=== PATIENT | male | born 1970 | race Two or more races ===

== ENCOUNTER 2024-11-17 10:00 | Day surgery (SDC) | payer MEDICAID, SELFPAY ==
[2024-11-16 09:46] VITALS: BMI 36.1
--- NOTE | 2024-11-16 09:54 | EKG_ITS ---
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
[2024-11-16 10:12] LABS: Collection Type, Urine Clean Catch
[2024-11-16 10:45] LABS: Basophils # (Auto) 0.0 Thou/mm3 (0.0-0.2); Basophils % (Auto) 0 % (0-2.5); Eosinophils # (Auto) 0.2 Thou/mm3 (0.0-0.5); Eosinophils % (Auto) 2 % (0-10); Hematocrit 46.8 % (41.0-53.0); Hemoglobin 15.6 g/dL (13.5-16.0); Immature Granulocytes Auto 0.04 Thou/mm3 (0.00-0.00); Lymphocytes # (Auto) 2.8 Thou/mm3 (1.0-4.8); Lymphocytes % (Auto) 29 % (10-50); Mean Corpuscular HGB Conc 33.3 g/dl (31.0-37.0); Mean Corpuscular Hemoglobin 27.2 pg (25.0-35.0); Mean Corpuscular Volume 82 fL (80-100); Monocytes # (Auto) 0.7 Thou/mm3 (0.0-0.8); Monocytes % (Auto) 7 % (0-12); Neutrophils # (Auto) 6.1 Thou/mm3 (1.8-7.7); Neutrophils % (Auto) 62 % (37-80); Nucleated Red Blood Cell # 0.00 Thou/mm3 (0.00-0.00); Nucleated Red Blood Cell % 0 /100 WBC (0); Platelet Count 255 Thou/mm3 (140-440); RDW Standard Deviation 40.8 fL (35.1-43.9); Red Blood Count 5.73 Miln/mm3 (4.50-5.90); White Blood Count 9.9 Thou/mm3 (3.8-10.6)
[2024-11-16 10:50] LABS: Bacteria,Urine 4+; Bilirubin,Urine Negative (Negative); Blood,Urine 3+ (Negative); Clarity,Urine Turbid (Clear/Hazy); Color,Urine Yellow (Lt Yel-Yel); Glucose, Urine Negative (Negative); Ketones,Urine Negative (Negative); Leukocyte Esterase,Urine Positive (Negative); Nitrite,Urine Negative (Negative); PH,Urine 6.5 (5.0-7.0); Protein,Urine 2+ (Neg - Trace); RBC,Urine 1633 /hpf (0-3); Specific Gravity,Urine 1.020 (1.001-1.035); Squamous Epithelial Cell,Urine 1 /hpf (0-5); Urobilinogen,Urine Negative mg/dL (0.0-1.0); WBC,Urine 87 /hpf (0-5)
[2024-11-16 10:52] LABS: Anion Gap 9 (7-16); BUN/Creatinine Ratio 11 Ratio (12-20); Blood Urea Nitrogen 9 mg/dL (9-23); Calcium 9.7 mg/dL (8.3-10.6); Carbon Dioxide 27.9 mMol/L (20.0-31.0); Chloride 105 mMol/L (98-107); Creatinine (Component) 0.8 mg/dL (0.6-1.3); Estimated Creatinine Clearance 125.6 mL/min (>60); Glucose 124 mg/dL (74-106); Osmolality,Calculated 282 (275-295); Potassium 4.2 mMol/L (3.4-5.1); Sodium 142 mMol/L (136-145); eGFR > 60 See Note
--- NOTE | 2024-11-16 14:09 | SUR.PREOP ---
Pt's ride Nataliia daughter notified to bring pt at 1000 tomorrow.
[2024-11-17] VITALS (8 sets, daily range): BP systolic 130–169; BP diastolic 77–94; PULSE 92–105; RESP 12–19; TEMP 36.2–36.6; O2SAT 92–98; BMI 35.9
--- NOTE | 2024-11-17 06:00 | XR_ITS ---
Examination: Abdomen AP single view Technique: AP portable supine abdomen, single view Exam date and time: November 17, 2024, 10:14 AM INDICATIONS: Flank pain history kidney stone 6 months FINDINGS: Right ureteral stent satisfactory position 16mm right renal calculus IMPRESSION: Right ureteral stent satisfactory position
--- NOTE | 2024-11-17 09:17 | ESHP_ITS ---
RE: THIAGO CERVANTES : 1970 DATE OF ADMISSION: 11/15/2024 HISTORY OF PRESENT ILLNESS: The patient has a right renal stone. Now, it is in the right ureter. He also has a right renal stone 19 mm and 20 mm. The patient is scheduled to have extracorporeal shock wave lithotripsy for the right renal stones. A 54-year-old gentleman Irish speaking with right renal pain. He had a stent placed by Dr. Decker in [place] and the patient had right renal stones. PAST SURGICAL HISTORY: Previous surgery included some surgery for stones by Dr. Reina. He had appendectomy before. He has 4 children. PAST MEDICAL HISTORY: He has a history of diabetes mellitus. No history of hypertension. ALLERGIES: NONE KNOWN. HOME MEDICATIONS: He is not on any medications. PHYSICAL EXAMINATION: HEENT: Normal. NECK: Supple. LUNGS: Clear. CARDIOVASCULAR: Heart sounds are normal. ABDOMEN: Soft without any organomegaly. No guarding. No rigidity. EXTREMITIES: Normal. LABORATORY DATA: CT scan of the abdomen and pelvis revealed 20 mm stone in the right renal pelvis and 2 mm right renal stone. The patient has a right ureteral stent in place. PLAN: Extracorporeal shock wave lithotripsy for the right renal stone. Planned procedure, risks, and complications have been discussed with the patient. The patient understood and agreed to proceed. DT: 14:12:17 TT: 15:02:00 Ref: [id number] - TID: [id number]
--- NOTE | 2024-11-17 12:45 | SUR.PHASEI ---
1245: Pt. arrived with nasal trumpet in left nare, pt. wakes to name then drifts back to sleep, vitals stable, breathing unlabored, no signs of distress, no dressing in place, no active bleed noted, report received from Hermann NIEVES and Nick ZAYAS.
[2024-11-17] MEDS: ONDANSETRON INJ 2 MG/ML INJ 2 ML 4 MG IV (13:27)
--- NOTE | 2024-11-17 13:47 | SUR.PHASEII ---
1347: Pt. AAOx4, vitals stable, breathing unlabored, no complaint of pain or nausea, no dressing in place, pt. able to void hematuria, pt. tolerated sips of water well, gave discharge instructions to the pt. and his ride, both verbalized understanding and had no further questions. Pt. left with all personal belongings.
--- NOTE | 2024-11-17 14:13 | ESOP_ITS ---
RE: NIKAPREMATHIAGO ABDULLAHI : 1970 DATE OF OPERATION: 11/17/2024 PREOPERATIVE DIAGNOSIS: Large right renal stone. POSTOPERATIVE DIAGNOSIS: Large right renal stone. PROCEDURE PERFORMED: Right ESWL for right renal stone. ANESTHESIA: General by Nick Reynolds CRNA. INDICATION: The patient is a 54-year-old male with a right renal stone. He has about 1.5 cm stone in the right renal pelvis. He had a right ureteral stent placed in [place] by Dr. Decker. He is now scheduled to have ESWL for the right renal stone. Planned procedure, risks and complications have been discussed with the patient. The patient has understood them and agreed to proceed. DESCRIPTION OF PROCEDURE: After the patient was brought to the operating table under adequate general anesthesia by Mr. Nick Reynolds CRNA, he was placed on Dornier Delta III lithotripsy machine, 2500 shocks were given to the stone. Power level 7 to 8. The patient was then taken to the recovery room in a satisfactory condition having tolerated the entire procedure well. DT: 12:22:29 TT: 14:12:00 Ref: [id number] - TID: [id number]
== END 2024-11-17 13:47 | disposition home or self-care (01) ==
PROVIDERS: Referring Provider Surgery; Visit Provider Surgery
PROC: (CPT 50590; principal; 2024-11-17 11:45)
DX: N20.0 Calculus of kidney (principal); Z01.810 Encounter for preprocedural cardiovascular examination; Z90.49 Acquired absence of other specified parts of digestive tract
CPT/HCPCS: 50590; 36415; 74018; 80048; 81001; 85025; 87086; 93005; A4217; A4649; J0131; J0694; J1171; J1885; J2250; J2405; J2704; J3010; J3490

== ENCOUNTER 2025-01-17 11:58 | Emergency (ER) | payer MEDICAID, SELFPAY ==
[2025-01-17 11:59] VITALS: BMI 35.2
--- NOTE | 2025-01-17 12:55 | XR_ITS ---
Examination: CT abdomen and pelvis without contrast. Coronal 3-D reconstructions. Sagittal 2-D reconstructions. Date and time of exam: January 17, 2025, 1410 hours INDICATIONS: Patient fell last week with injury to the abdomen, abdominal pain CTDI: vol (mGy): 14.1 DLP: (mGycm): 935 Technique: Axial images of the abdomen have been obtained, 3 mm slice thickness Intravenous contrast material has not been administered. Low dose protocols were performed. One or more of the following dose reduction techniques were used; automated exposure control, adjustment of the mA and/or KV according to patient size, use of iterative reconstruction technique. Findings: No focal liver or splenic lesions Contracted gallbladder No pancreatic or adrenal mass Right ureteral stent, multiple right renal calculi, mild right hydronephrosis, 3 mm right ureteral calculus Aorta intact, no free blood in the abdomen Urinary bladder intact Moderate osteopenia Hips bones of the pelvis intact IMPRESSION: No abdominal parenchymal laceration No free blood in the abdomen or pelvis Right multiple renal calculi, 3 mm right ureteral calculus Right ureteral stent satisfactory position Mild right hydronephrosis
--- NOTE | 2025-01-17 12:56 | PD.EDRME ---
Rapid Medical Screening Exam RME Arrival date/time: 01/17/25 11:58 54-year-old male presents emergency department today from his right flank pain and hematuria patient reports history of kidney stones and kidney stents patient also ports recent fall Chief Complaint: Back Pain/Injury Vital signs reviewed by provider: Yes Exam: On exam patient well-appearing does not appear look toxic patient does have pain the right flank Clinical Impression: Lab work and imaging ordered
[2025-01-17 12:58] VITALS: BP 159/98; PULSE 92; RESP 18; TEMP 36.5; O2SAT 96
[2025-01-17] MEDS: HYDROcodone/APAP 5/325 TABLET 1 TAB PO (13:20)
[2025-01-17 13:21] LABS: Collection Type, Urine Clean Catch; Squamous Epithelial Cell,Urine 0 /hpf (0-5)
[2025-01-17] MEDS: KETOROLAC INJ 30 MG/ML VIAL IM (13:22)
[2025-01-17 13:42] LABS: Basophils # (Auto) 0.0 Thou/mm3 (0.0-0.2); Basophils % (Auto) 0 % (0-2.5); Eosinophils # (Auto) 0.2 Thou/mm3 (0.0-0.5); Eosinophils % (Auto) 2 % (0-10); Hematocrit 45.1 % (41.0-53.0); Hemoglobin 15.0 g/dL (13.5-16.0); Immature Granulocytes Auto 0.05 Thou/mm3 (0.00-0.00); Lymphocytes # (Auto) 3.5 Thou/mm3 (1.0-4.8); Lymphocytes % (Auto) 33 % (10-50); Mean Corpuscular HGB Conc 33.3 g/dl (31.0-37.0); Mean Corpuscular Hemoglobin 26.7 pg (25.0-35.0); Mean Corpuscular Volume 80 fL (80-100); Monocytes # (Auto) 0.9 Thou/mm3 (0.0-0.8); Monocytes % (Auto) 8 % (0-12); Neutrophils # (Auto) 5.9 Thou/mm3 (1.8-7.7); Neutrophils % (Auto) 55 % (37-80); Nucleated Red Blood Cell # 0.00 Thou/mm3 (0.00-0.00); Nucleated Red Blood Cell % 0 /100 WBC (0); Platelet Count 251 Thou/mm3 (140-440); RDW Standard Deviation 41.2 fL (35.1-43.9); Red Blood Count 5.62 Miln/mm3 (4.50-5.90); White Blood Count 10.6 Thou/mm3 (3.8-10.6)
[2025-01-17 13:43] LABS: Alanine Aminotransferase 27 U/L (10-49); Albumin, Serum 4.5 gm/dL (3.5-5.0); Albumin/Globulin Ratio 1.9 (1.2-2.2); Alkaline Phosphatase 112 U/L (46-116); Anion Gap 9 (7-16); Aspartate Amino Transferase 22 U/L (0-34); BUN/Creatinine Ratio 10 Ratio (12-20); Bilirubin,Total 0.3 mg/dL (0.3-1.2); Blood Urea Nitrogen 8 mg/dL (9-23); Calcium 9.7 mg/dL (8.3-10.6); Calcium (Corrected) 9.7 mg/dL (8.5-10.1); Carbon Dioxide 25.9 mMol/L (20.0-31.0); Chloride 106 mMol/L (98-107); Creatinine (Component) 0.8 mg/dL (0.6-1.3); Estimated Creatinine Clearance 120.2 mL/min (>60); Globulin 2.4 gm/dL (2.3-3.5); Glucose 116 mg/dL (74-106); Lipase 29 U/L (12-53); Osmolality,Calculated 280 (275-295); Potassium 3.7 mMol/L (3.4-5.1); Sodium 141 mMol/L (136-145); Total Protein 6.9 gm/dL (5.7-8.2); eGFR > 60 See Note
[2025-01-17 14:02] LABS: Bacteria,Urine 1+; Bilirubin,Urine Negative (Negative); Blood,Urine 3+ (Negative); Color,Urine Dark-Brown (Lt Yel-Yel); Glucose, Urine Negative (Negative); Hyaline Casts,Urine 1 /hpf (0-1); Ketones,Urine Negative (Negative); Leukocyte Esterase,Urine Positive (Negative); Nitrite,Urine Negative (Negative); PH,Urine 6.0 (5.0-7.0); Protein,Urine 2+ (Neg - Trace); RBC,Urine 6695 /hpf (0-3); Specific Gravity,Urine 1.021 (1.001-1.035); Urobilinogen,Urine Negative mg/dL (0.0-1.0); WBC,Urine 58 /hpf (0-5)
[2025-01-17 14:12] LABS: Clarity,Urine Cloudy (Clear/Hazy); Culture Indicated,Urine Yes
--- NOTE | 2025-01-17 14:26 | EDNOTE_ITS ---
ED Back Injury Pain RME/HPI General Chief Complaint: Back Pain/Injury Stated Complaint: R FLANK PAIN S/P FALL ON SAT; PMH KIDNEY STENT Time Seen by Provider: 01/17/25 14:06 Arrival date/time: 01/17/25 11:58 RME / HPI RME / HPI Narrative: 01/17/25 11:58 54-year-old male presents emergency department today from his right flank pain and hematuria patient reports history of kidney stones and kidney stents patient also ports recent fall DR. JENSEN MAIN ED EVALUATION, 1427h: 54 year old male with history of right kidney stone with ureteral stent in place (08/09/2024) presents to the ED for evaluation of right flank pain today. Pain described as colicky aching in sensation, rating as moderate. Accompanied by hematuria and dysuria. However, states he has had mild dysuria since stent placement months ago. Patient mentioned he had a ground level fall 4 days ago and concerned that may have cause his symptoms. No other injuries or complaints reported. Patient mentioned he consulted with his urologist Dr. Garay today who advised he come to the ED for further evaluation. Exam: On exam patient well-appearing does not appear look toxic patient does have pain the right flank Impression: Lab work and imaging ordered Related Data Previous Rx's ?Medication ?Instructions ?Recorded ciprofloxacin HCl 500 mg tablet 500 mg PO BID #30 tabs 11/17/24 (Cipro) hydrocodone 5 mg-acetaminophen 325 1 tab PO Q6H PRN pa in #30 tabs 11/17/24 mg tablet ketorolac 10 mg tablet 10 mg PO Q8H PRN pain 5 days #20 01/17/25 tabs tamsulosin 0.4 mg capsule (Flomax) 0.4 mg PO QDAY #10 caps 01/17/25 Allergies Allergy/AdvReac Type Severity Reaction Status Date / Time No Known Allergies Allergy Verified 01/17/25 12:02 Review of Systems Review of Systems Systems Reviewed: All systems reviewed, normal except as documented Past Medical History Past Medical History GASTROINTESTINAL: Positive Gastrointestinal Disorders and Obesity GENITOURINARY: Positive Genitourinary Disorders and Kidney Stones Surgical History SURGICAL: Positive Abdominal Surgery Social History SMOKING STATUS: Never smoker ED Exam Narrative Physical exam: Constitutional: Awake, alert, nontoxic, no acute distress, obese HEENT: Normocephalic, atraumatic, extraocular movements intact. Neck: Supple CV: Regular rate and rhythm, no murmurs/rubs/gallops Lungs: Clear to auscultation BL, no respiratory distress. Abd: Soft, tenderness to the right flank and right lateral abdomen, no rebound, no guarding, ND, no HSM noted to palpation Extremities: No deformities, no edema noted Neuro: AAOx3, CN 2-12 GIBL Skin: Warm, dry, intact Course Quality Measures none Orders Category Date Time Status CT abdomen pelvis wo con Stat Exams 01/17/25 12:55 Completed CBC Stat Lab 01/17/25 13:05 Completed Comprehensive Metabolic Panel Stat Lab 01/17/25 13:05 Completed Lipase Stat Lab 01/17/25 13:05 Completed UA, C/S IF [Urinalysis, C/S if Indicated] Stat Lab 01/17/25 13:13 Completed Urine Culture Stat Lab 01/17/25 13:13 Received HYDROcodone*/APAP 5/325 [[place] 5/325] Med 01/17/25 12:55 Discontinued 1 tab PO X1 ONE Ketorolac Inj [Toradol Inj] Med 01/17/25 12:55 Discontinued 30 mg IM X1 ONE Vital Signs Vital signs: Vital Signs Temperature 97.7 F 01/17/25 12:58 Pulse Rate 92 01/17/25 12:58 Respiratory Rate 18 01/17/25 12:58 Blood Pressure 159/98 H 01/17/25 12:58 Pulse Oximetry (%) 96 01/17/25 12:58 Oxygen Delivery Method Room Air 01/17/25 12:58 Pulse ox is 96% on room air which is adequate. Back Pain / Injury MDM Narrative MDM Narrative:: Mel Ramirez am scribing for and in the presence of Dr. Jensen. Patient data External records reviewed:: [facility] previous records Clinical information provided by:: patient Social determinants that could affect healthcare access:: none Patient has the following chronic illnesses:: right kidney stone with ureteral stent in place (08/09/2024) How is presenting disease/condition affected by chronic disease/condition?: exacerbated by Evaluation data The following diagnostics were reviewed and interpreted by me:: lab results and radiology exam(s) Lab and/or radiology exams considered but not ordered:: None Interpretation Summary: Ordering Physician: Triny WINN)Hussein NP Date of Service: 01/17/25 Procedure(s): CT abdomen pelvis wo con Accession Number(s): [id number] cc: Triny (MONA),Hussein DUNN; Servando Marin MD~ Examination: CT abdomen and pelvis without contrast. Coronal 3-D reconstructions. Sagittal 2-D reconstructions. Date and time of exam: January 17, 2025, 1410 hours INDICATIONS: Patient fell last week with injury to the abdomen, abdominal pain CTDI: vol (mGy): 14.1 DLP: (mGycm): 935 Technique: Axial images of the abdomen have been obtained, 3 mm slice thickness Intravenous contrast material has not been administered. Low dose protocols were performed. One or more of the following dose reduction techniques were used; automated exposure control, adjustment of the mA and/or KV according to patient size, use of iterative reconstruction technique. Findings: No focal liver or splenic lesions Contracted gallbladder No pancreatic or adrenal mass Right ureteral stent, multiple right renal calculi, mild right hydronephrosis, 3 mm right ureteral calculus Aorta intact, no free blood in the abdomen Urinary bladder intact Moderate osteopenia Hips bones of the pelvis intact IMPRESSION: No abdominal parenchymal laceration No free blood in the abdomen or pelvis Right multiple renal calculi, 3 mm right ureteral calculus Right ureteral stent satisfactory position Mild right hydronephrosis Dictated By: Servando Marin MD Signed By: <Electronically signed by Servando Marin MD in [place]> 01/17/25 1440 Medications / Prescriptions Medications or Prescriptions considered but not ordered:: None Medication administrations:: Medication Administration History Discontinued Medications Hydrocodone Bitart/Acetaminophen (Hydrocodone/Apap 5/325 Tablet) 1 tab PO X1 ONE Stop: 01/17/25 12:56 Last Admin: 01/17/25 13:20 Dose: 1 tab Documented By: Ketorolac Tromethamine (Ketorolac Inj 30 Mg/Ml Vial) 30 mg IM X1 ONE Stop: 01/17/25 12:56 Last Admin: 01/17/25 13:22 Dose: 30 mg Documented By: See above Consultations Consultation(s) initiated? (list below): No Diagnosis Most likely diagnosis given after review of the tests above:: Ureterolithiasis Ureteral stent present Admission Indicated Admission indicated?: not indicated Explain why admission is indicated or not indicated:: With no condition needing emergent intervention, there was no indication for admission. Admission Request Was there a request for admission?: No Disposition Plan Disposition Plan: Discharge Discharge Attestation Discharge Attestation: The patient and all family members were given an opportunity to ask questions and understood the discharge instructions. Discharge instructions specifically effects, indications for sooner follow up or return to the emergency department, and the expected course of current diagnosis. Patient condition: Stable Discharge Plan Plan Patient Disposition: HOME (Self Care) Patient condition on transfer: Stable Prescriptions/Referrals Prescriptions/Med Rec: New ketorolac 10 mg tablet 10 mg PO Q8H PRN (Reason: pain) 5 Days Qty: 20 0RF Rx Instructions: maximum total duration of 5 days. Avoid concurrent use of ibuprofen. tamsulosin [Flomax] 0.4 mg capsule 0.4 mg PO QDAY Qty: 10 0RF Discontinued ibuprofen 800 mg tablet 800 mg PO Q8H PRN (Reason: pain) No Action hydrocodone-acetaminophen 5-325 mg tablet 1 tab PO Q6H MDD 4 PRN (Reason: pain) Qty: 30 0RF ciprofloxacin HCl [Cipro] 500 mg tablet 500 mg PO BID Qty: 30 0RF Problem List Clinical Impression: Ureterolithiasis, Ureteral stent present Patient/Caregiver Discharge Instructions Education Materials: Treating Kidney Stones ..., ED Kidney Stone w/ Colic Additional Instructions: Algunos principios generales de rama que pueden ayudarte son los principios de ADELANTE: Agua: (beber suficiente agua fresca para mantenerse hidratado, priorizando el agua en lugar de refrescos, caf?, t?, jugos, etc.). Pelion (descansar adecuadamente por la noche, acostarse unas horas antes de la medianoche y evitar las pantallas, la televisi?n y la m?idalia clemente steven antes de acostarse, as? sherin las comidas pesadas steven antes de acostarse). Ejercicio: (ejercicio/caminatas diarias seg?n la tolerancia). Deborah solar: (exponer la piel al jorge gabrielle 15-20 minutos aproximadamente, temprano por la ma?paolo y al atardecer, para obtener los beneficios de la vitamina D). Aire (ejercicios de respiraci?n profunda temprano por la ma?paolo al aire raheem). Nutricion: (consumir essence dieta a base de plantas, evitar las ellen en general y los alimentos altamente procesados). Templanza (evitar el alcohol, las drogas il?citas, las bebidas con cafe?na, fumar, etc.). Mellissa en [place] (dedicar tiempo diariamente al estudio b?blico y la oraci?n: la contemplaci?n tiene beneficios para la rama). Recursos adicionales que pueden ser ?mary: [email or web address], consulte la secci?n de recursos y seminarios. Print Language: Wolof Stand Alone Forms: Jie Award Info., Patient Portal Info Letter
== END 2025-01-17 15:12 | disposition home or self-care (01) ==
LOC: SERX 15:20
PROVIDERS: Nurse Practitioner Primary Care; Emergency Provider Family Medicine
DX: N13.2 Hydronephrosis with renal and ureteral calculous obstruction (principal); Z96.0 Presence of urogenital implants
CPT/HCPCS: 36415; 74176; 80053; 81001; 83690; 85025; 87086; 96372; 99283; J1885; A9270

== ENCOUNTER 2025-01-19 10:50 | Day surgery (SDC) | payer MEDICAID, SELFPAY ==
[2025-01-18 12:05] VITALS: BMI 36.9
--- NOTE | 2025-01-18 12:14 | EKG_ITS ---
[facility] Test Date: 2025-01-18 Pat Name: THIAGO CERVANTES Department: Room: - Gender: Male Digital Coordinator: ТАТЬЯНА : 1970 Requested By: Grey Garay Order Number: [id number] Reading MD: Grey Garay Measurements Intervals [place] Rate: 86 P: 19 GA: 156 QRS: -49 QRSD: 109 T: 30 QT: 362 QTc: 435 Interpretive Statements SINUS RHYTHM PATTERN CONSISTENT WITH PULMONARY DISEASE INCOMPLETE RIGHT BUNDLE BRANCH BLOCK [90+ ms QRS DURATION, TERMINAL R IN V1/V2, 40+ ms S IN I/aVL/V4/V5/V6] LEFT ANTERIOR FASCICULAR BLOCK [QRS AXIS <= -45, QR IN I, RS IN II] No previous ECG available for comparison /store/S0/[id number]/ecg/[id number].pdf
[2025-01-18 12:54] LABS: Collection Type, Urine Clean Catch; Squamous Epithelial Cell,Urine 0 /hpf (0-5)
--- NOTE | 2025-01-18 13:13 | ESHP_ITS ---
RE: THIAGO CERVANTES : 1970 DATE OF ADMISSION: 01/18/2025 HISTORY OF PRESENT ILLNESS: Patient has a right renal stone and a right ureteral stent, is now scheduled for repeat ESWL for the right renal stone. Patient had a 1.5 cm stone in the right lower pole of the kidney for which he had ESWL done in 11/2024. Patient has a right ureteral stent placed in [place] by Dr. Decker. He is now scheduled to have a repeat right ESWL because there are still stones left in the right kidney and he may need a cystoscopy and exchange of the right ureteral stent because the stent seems to be a little longer on previous x-rays, and patient has been complaining of so much urgency and frequency of urination. PAST SURGICAL HISTORY: Patient had laser lithotripsy by Dr. Reina many years ago. He also had appendectomy. He has four children. PAST MEDICAL HISTORY: He has history of diabetes mellitus. No history of hypertension. HOME MEDICATIONS: Patient does not take any medications. ALLERGIES: NONE KNOWN. PHYSICAL EXAMINATION: HEENT: Normal. Neck: Supple. Lungs: Clear. CARDIAC: Heart sounds are normal. ABDOMEN: Soft without any organomegaly. No guarding. No rigidity. Extremities: Normal. GENITOURINARY: Phallus is normal. Testes are down in scrotum. IMPRESSION: Right renal stones with a right ureteral stent. PLAN: Right ESWL, possible cystoscopy and exchange of the right ureteral stent. Planned procedure, risks, and complications have been discussed with the patient and the daughter. They have understood them and agreed to proceed. DT: 12:41:42 TT: 13:11:00 Ref: [id number] - TID: [id number]
[2025-01-18 13:29] LABS: Anion Gap 8 (7-16); BUN/Creatinine Ratio 13 Ratio (12-20); Blood Urea Nitrogen 13 mg/dL (9-23); Calcium 8.8 mg/dL (8.3-10.6); Carbon Dioxide 30.5 mMol/L (20.0-31.0); Chloride 106 mMol/L (98-107); Creatinine (Component) 1.0 mg/dL (0.6-1.3); Estimated Creatinine Clearance 101.7 mL/min (>60); Glucose 166 mg/dL (74-106); Osmolality,Calculated 290 (275-295); Potassium 4.1 mMol/L (3.4-5.1); Sodium 144 mMol/L (136-145); eGFR > 60 See Note
[2025-01-18 13:31] LABS: Basophils # (Auto) 0.0 Thou/mm3 (0.0-0.2); Basophils % (Auto) 0 % (0-2.5); Eosinophils # (Auto) 0.3 Thou/mm3 (0.0-0.5); Eosinophils % (Auto) 3 % (0-10); Hematocrit 44.4 % (41.0-53.0); Hemoglobin 14.9 g/dL (13.5-16.0); Immature Granulocytes Auto 0.06 Thou/mm3 (0.00-0.00); Lymphocytes # (Auto) 3.0 Thou/mm3 (1.0-4.8); Lymphocytes % (Auto) 32 % (10-50); Mean Corpuscular HGB Conc 33.6 g/dl (31.0-37.0); Mean Corpuscular Hemoglobin 27.2 pg (25.0-35.0); Mean Corpuscular Volume 81 fL (80-100); Monocytes # (Auto) 0.6 Thou/mm3 (0.0-0.8); Monocytes % (Auto) 7 % (0-12); Neutrophils # (Auto) 5.5 Thou/mm3 (1.8-7.7); Neutrophils % (Auto) 58 % (37-80); Nucleated Red Blood Cell # 0.00 Thou/mm3 (0.00-0.00); Nucleated Red Blood Cell % 0 /100 WBC (0); Platelet Count 252 Thou/mm3 (140-440); RDW Standard Deviation 41.7 fL (35.1-43.9); Red Blood Count 5.48 Miln/mm3 (4.50-5.90); White Blood Count 9.4 Thou/mm3 (3.8-10.6)
[2025-01-18 13:39] LABS: Bilirubin,Urine Negative (Negative); Blood,Urine 3+ (Negative); Clarity,Urine Turbid (Clear/Hazy); Glucose, Urine Negative (Negative); Ketones,Urine Trace (Negative); Leukocyte Esterase,Urine Positive (Negative); Nitrite,Urine Negative (Negative); PH,Urine 6.0 (5.0-7.0); Protein,Urine 2+ (Neg - Trace); RBC,Urine 8562 /hpf (0-3); Specific Gravity,Urine 1.021 (1.001-1.035); Urobilinogen,Urine Negative mg/dL (0.0-1.0); WBC,Urine 52 /hpf (0-5)
[2025-01-18 13:46] LABS: Color,Urine Amber (Lt Yel-Yel)
[2025-01-19] VITALS (8 sets, daily range): BP systolic 134–157; BP diastolic 83–98; PULSE 86–96; RESP 13–21; TEMP 36.4–36.8; O2SAT 94–100; BMI 42.7
--- NOTE | 2025-01-19 06:00 | XR_ITS ---
Examination: Abdomen AP single view Technique: AP portable supine abdomen, single view Exam date and time: January 19, 2025, 1141 hours, comparison December 04, 2024 INDICATIONS: Preop lithotripsy, history kidney stones FINDINGS: Right ureteral stent satisfactory position 21 mm calculus in distribution of the ureteral pelvic junction Multiple poorly defined calculi in the lower pole right kidney No left renal calculi IMPRESSION: Right ureteral stent satisfactory position, right renal calculi as above
--- NOTE | 2025-01-19 14:32 | SUR.PHASEI ---
1421: pt arrived to PACU via gurney drowsy but arouses to voice, breathing unlabored, VS stable, report from Ellis NIEVES 1432: Report to Mayra NIEVES
--- NOTE | 2025-01-19 14:52 | SUR.PHASEI ---
1432: Assumed care. Pt resting with no complaints voiced. VS stable. Denies pain. 1433: Pt requested urinal. Voided 300cc clear pink urine.
--- NOTE | 2025-01-19 16:09 | SUR.PHASEII ---
1500: Pt more alert. VS stable. Pt voided using urinal 250 clear pink urine. 1510: Pt sitting up tolerating po fluids with no difficulty swallowing and no n/v. VS stable. No c/o pain. 1522: Pt voided 200cc using urinal of clear pink urine. 1546: Pt fully awake, oriented x3. Pt dressed. Assisted to restroom to void. Pt requested daughter interpret for him. Pt and daughter stated understanding of discharge instructions. Pt also instructed to also picker operator his prescription at [facility]. Pt discharged from Pacu in stable condition.
--- NOTE | 2025-01-19 21:30 | ESOP_ITS ---
RE: THIAGO CERVANTES : 1970 DATE OF OPERATION: 01/19/2025 PREOPERATIVE DIAGNOSIS: Right renal calculi. POSTOPERATIVE DIAGNOSIS: Right renal calculi. PROCEDURE PERFORMED: ESWL for right renal calculi. ANESTHESIA: General by Mr. Milan Reynolds CRNA INDICATION: Patient is a 54-year-old gentleman who had a right ureteral stent placed because of the right flank pain and a right renal calculi. This was placed in [place] by Dr. Decker. Patient then had ESWL for the right renal calculi. He has still several stones left in his right kidney. There is a 1.5 cm size stone next to the right ureter in the right renal pelvis and there are few little calculi in the lower pole of the right kidney, about 5 mm stone in the right lower pole. Patient is now scheduled to have repeat ESWL for the large right renal pelvic stone and a right lower pole renal stones. DESCRIPTION OF PROCEDURE: Planned procedure, risks, and complications have been discussed with the patient and his daughter; they have understood them and agreed to proceed. After the patient was brought to the operating table under adequate general anesthesia given by Mr. Milan Reynolds CRNA, he was placed on Dornier Delta 3 lithotripsy machine, 2500 shocks were given to power level 8-9 to the right renal pelvic stone and 250 shocks were given to the right lower pole renal stones. Patient tolerated the entire procedure well and left the room in good condition. DT: 14:00:47 TT: 21:29:00 Ref: [id number] - TID: [id number]
== END 2025-01-19 15:46 | disposition home or self-care (01) ==
PROVIDERS: PCP Family Medicine; Referring Provider Surgery; Visit Provider Surgery
PROC: (CPT 50590; principal; 2025-01-19 13:15)
DX: N20.2 Calculus of kidney with calculus of ureter (principal); Z01.810 Encounter for preprocedural cardiovascular examination
CPT/HCPCS: 50590; 36415; 74018; 80048; 81001; 85025; 87086; 93005; A4649; J0694; J1938; J2250; J2704; J3010; J3490; J1920

== ENCOUNTER → 2025-02-07 | Outpatient (CLI) | payer MEDICAID, SELFPAY ==
--- NOTE | 2025-02-07 15:00 | XR_ITS ---
Examination: Abdomen AP single view Technique: AP portable supine abdomen, single view Exam date and time: February 07, 2025, 1511 hours INDICATIONS: History right flank pain post ureteral stent placement 6 months ago FINDINGS: Right ureteral stent in adequate position Multiple right mid and lower pole renal calculi IMPRESSION: Multiple right mid and lower pole renal calculi
== END | disposition home or self-care (01) ==
LOC: CDIM 14:48
PROVIDERS: PCP Family Medicine; Referring Provider Surgery; Visit Provider Surgery
DX: N20.0 Calculus of kidney (principal)
CPT/HCPCS: 74018

== ENCOUNTER 2025-03-02 20:18 | Emergency (ER) | payer MEDICAID, SELFPAY ==
[2025-03-02 20:19] VITALS: BMI 34.9
[2025-03-02 21:09] VITALS: BP 179/101; PULSE 100; RESP 18; TEMP 36.7; O2SAT 94
--- NOTE | 2025-03-02 21:26 | XR_ITS ---
Examination: CT abdomen and pelvis without contrast. Coronal 3-D reconstructions. Sagittal 2-D reconstructions. Date and time of exam: March 02, 2025, 2144 hours, comparison January 17, 2025 INDICATIONS: Onset right flank pain today, history renal calculi and right ureteral stent CTDI: vol (mGy): 13.6 DLP: (mGycm): 905 Technique: Axial images of the abdomen have been obtained, 3 mm slice thickness Intravenous contrast material has not been administered. Low dose protocols were performed. One or more of the following dose reduction techniques were used; automated exposure control, adjustment of the mA and/or KV according to patient size, use of iterative reconstruction technique. Findings: No visualized liver or splenic lesion Contracted gallbladder No pancreatic or adrenal mass Moderate right hydronephrosis, multiple right renal calculi, including a staghorn calculus lower pole right renal calyx 13 mm 5 mm distal right ureteral calculus No bowel obstruction No pericecal inflammatory change Normal seminal vesicles Mild prostatomegaly Contracted urinary bladder IMPRESSION:: Moderate right hydronephrosis, 5 mm distal right ureteral calculus
--- NOTE | 2025-03-02 21:27 | PD.EDRME ---
Rapid Medical Screening Exam E Arrival date/time: 03/02/25 20:18 54M with history of kidney stones present to ED with sudden R flank pain and N/V. Patient denies dysuria. Patient does not have a ureteral stent currently. Chief Complaint: Urogenital-Male Vital signs: Vital Signs Temperature 98.0 F 03/02/25 21:09 Pulse Rate 100 03/02/25 21:09 Respiratory Rate 18 03/02/25 21:09 Blood Pressure 179/101 H 03/02/25 21:09 Pulse Oximetry (%) 94 L 03/02/25 21:09 Oxygen Delivery Method Room Air 03/02/25 21:09 Exam: Appears to be in pain. Clinical Impression: Kidney stone vs UTI/pyelo vs appy vs drug/alcohol use
[2025-03-02 21:52] LABS: Basophils # (Auto) 0.0 Thou/mm3 (0.0-0.2); Basophils % (Auto) 0 % (0-2.5); Eosinophils # (Auto) 0.2 Thou/mm3 (0.0-0.5); Eosinophils % (Auto) 2 % (0-10); Hematocrit 44.7 % (41.0-53.0); Hemoglobin 15.1 g/dL (13.5-16.0); Immature Granulocytes Auto 0.04 Thou/mm3 (0.00-0.00); Lymphocytes # (Auto) 3.3 Thou/mm3 (1.0-4.8); Lymphocytes % (Auto) 28 % (10-50); Mean Corpuscular HGB Conc 33.8 g/dl (31.0-37.0); Mean Corpuscular Hemoglobin 27.0 pg (25.0-35.0); Mean Corpuscular Volume 80 fL (80-100); Monocytes # (Auto) 0.8 Thou/mm3 (0.0-0.8); Monocytes % (Auto) 7 % (0-12); Neutrophils # (Auto) 7.3 Thou/mm3 (1.8-7.7); Neutrophils % (Auto) 63 % (37-80); Nucleated Red Blood Cell # 0.00 Thou/mm3 (0.00-0.00); Nucleated Red Blood Cell % 0 /100 WBC (0); Platelet Count 262 Thou/mm3 (140-440); RDW Standard Deviation 40.5 fL (35.1-43.9); Red Blood Count 5.60 Miln/mm3 (4.50-5.90); White Blood Count 11.7 Thou/mm3 (3.8-10.6)
[2025-03-02 21:53] LABS: Collection Type, Urine Clean Catch
[2025-03-02] MEDS: ONDANSETRON ODT 4 MG TABRAP PO (21:59)
[2025-03-02 22:00] VITALS: TEMP 36.7
[2025-03-02 22:00] LABS: Bilirubin,Urine Negative (Negative); Blood,Urine Trace (Negative); Clarity,Urine Clear (Clear/Hazy); Color,Urine Colorless (Lt Yel-Yel); Culture Indicated,Urine Not Indicated; Glucose, Urine Negative (Negative); Ketones,Urine Negative (Negative); Leukocyte Esterase,Urine Negative (Negative); Nitrite,Urine Negative (Negative); PH,Urine 6.5 (5.0-7.0); Protein,Urine Trace (Neg - Trace); RBC,Urine 3 /hpf (0-3); Specific Gravity,Urine 1.014 (1.001-1.035); Squamous Epithelial Cell,Urine < 1 /hpf (0-5); Urobilinogen,Urine Negative mg/dL (0.0-1.0); WBC,Urine 1 /hpf (0-5)
[2025-03-02] MEDS: KETOROLAC INJ 60 MG/2 ML VIAL IM (22:00)
[2025-03-02 22:10] LABS: Alanine Aminotransferase 28 U/L (10-49); Albumin, Serum 4.4 gm/dL (3.5-5.0); Albumin/Globulin Ratio 1.4 (1.2-2.2); Alkaline Phosphatase 123 U/L (46-116); Anion Gap 10 (7-16); Aspartate Amino Transferase 22 U/L (0-34); BUN/Creatinine Ratio 10 Ratio (12-20); Bilirubin,Total 0.3 mg/dL (0.3-1.2); Blood Urea Nitrogen 10 mg/dL (9-23); Calcium 9.6 mg/dL (8.3-10.6); Calcium (Corrected) 9.6 mg/dL (8.5-10.1); Carbon Dioxide 27.3 mMol/L (20.0-31.0); Chloride 104 mMol/L (98-107); Creatinine (Component) 1.0 mg/dL (0.6-1.3); Estimated Creatinine Clearance 98.9 mL/min (>60); Globulin 3.1 gm/dL (2.3-3.5); Glucose 126 mg/dL (74-106); Osmolality,Calculated 282 (275-295); Potassium 3.7 mMol/L (3.4-5.1); Sodium 141 mMol/L (136-145); Total Protein 7.5 gm/dL (5.7-8.2); eGFR > 60 See Note
[2025-03-02 22:25] VITALS: BP 172/104; PULSE 89; RESP 22; TEMP 36.8; O2SAT 96
--- NOTE | 2025-03-02 22:34 | PD.EDMALE ---
ED Male Genitalurinary RME/HPI General Chief complaint: Urogenital-Male Stated complaint: RIGHT FLANK PAIN Time Seen by Provider: 03/02/25 21:31 Arrival date/time: 03/02/25 20:18 RME / HPI RME / HPI Narrative: 03/02/25 20:18 54M with history of kidney stones present to ED with sudden R flank pain and N/V. Patient denies dysuria. Patient does not have a ureteral stent currently. Dr. Hall?s Main ED Evaluation: 54yo male with known longstanding history of kidney stones, recent removal of ureteral stent after requiring lithotripsy in January now presenting with sudden right lower quadrant pain radiating to both flank and right groin with associated N/V onset several hours [employer]. With associated frequency and urgency, although denies hematuria. No history of RI/CVA, although patient may be prediabetic and have early hypertension. PSH noncontributory. Social history is unremarkable. Related Data Home Medications ?Medication ?Instructions ?Recorded ?Confirmed hydrocodone 5 mg-acetaminophen 325 1 tab PO Q6H PRN pain 01/18/25 01/19/25 mg tablet tamsulosin 0.4 mg capsule (Flomax) 0.4 mg PO DAILY 01/18/25 01/19/25 Previous Rx's ?Medication ?Instructions ?Recorded ciprofloxacin HCl 500 mg tablet 500 mg PO BID #14 tabs 01/19/25 (Cipro) hydrocodone 5 mg-acetaminophen 325 1 tab PO Q6H PRN pain #30 tabs 01/19/25 mg tablet amlodipine 5 mg tablet 5 mg PO QDAY #30 tabs 03/02/25 hydrocodone 5 mg-acetaminophen 325 1 tab PO Q8H PRN pain #24 tabs 03/02/25 mg tablet promethazine 12.5 mg tablet 12.5 mg PO TID PRN nausea and 03/02/25 vomiting #14 tabs tamsulosin 0.4 mg capsule 0.4 mg PO QDAY 7 days #7 caps 03/02/25 Allergies Allergy/AdvReac Type Severity Reaction Status Date / Time No Known Allergies Allergy Verified 01/19/25 14:45 Review of Systems Review of Systems Systems Reviewed: All systems reviewed, normal except as documented ED Exam Narrative Physical exam: Please note my examination was conducted after the initial triage medications were administered. GENERAL APPEARANCE: alert and oriented x 4, well-developed, well-nourished, nontoxic, no acute distress VITALS: All vitals were reviewed and the pulse ox is 96% on room air, which is normal according to my interpretation. Notably hypertensive. HEENT: Normocephalic, atraumatic; pupils equal, round, reactive to light; EOMI; mucous membranes pink, moist; oropharynx clear NECK: Supple LUNGS: CTABL; no wheezes, no rales, no rhonchi HEART: Regular rate, regular rhythm; normal S1, S2; no murmurs ABDOMEN: non distended; soft, moderate RLQ tenderness BACK: no CVA tenderness EXTREMITIES: atraumatic; no edema NEUROLOGIC: awake; alert and oriented x4; cranial nerves II-XII grossly intact; no focal sensory or motor deficits PSYCHIATRIC: appropriate mood and affect SKIN: warm, dry, normal color; no rashes Course Quality Measures none Orders Category Date Time Status CT abdomen pelvis wo con Stat Exams 03/02/25 21:26 Completed CBC Stat Lab 03/02/25 21:40 Completed CMP [Comprehensive Metabolic Panel] Stat Lab 03/02/25 21:40 Completed Urinalysis, C/S if Indicated Stat Lab 03/02/25 21:46 Completed Ketorolac Inj [Toradol Inj] Med 03/02/25 21:26 Discontinued 60 mg IM X1 ONE Ondansetron Odt [Zofran Odt] Med 03/02/25 21:26 Discontinued 4 mg PO X1 ONE amLODIPine BESYLATE [Norvasc] Med 03/02/25 22:53 Discontinued 5 mg PO X1 ONE Vital Signs Vital signs: Vital Signs Temperature 98.0 F 03/02/25 21:09 Pulse Rate 100 03/02/25 21:09 Respiratory Rate 18 03/02/25 21:09 Blood Pressure 179/101 H 03/02/25 21:09 Pulse Oximetry (%) 94 L 03/02/25 21:09 Oxygen Delivery Method Room Air 03/02/25 21:09 Urogenital - Male MDM Narrative MDM Narrative:: Scribe Attestation: 03/02/25 - Suzy Ramirez am scribing for and in the presence of Dr. Hall. 54yo male with known longstanding history of kidney stones, recent removal of ureteral stent after requiring lithotripsy in January now presenting with sudden right lower quadrant pain radiating to both flank and right groin with associated N/V onset several hours [employer]. With associated frequency and urgency, although denies hematuria. Please see PE findings. Lab markers demonstrated marginally elevated WBC count of 11.7, Hgb stable at 15.1, normal Plt count, no left shift or bandemia. Chemistries are unremarkable. UA within normal limits. Patient received IM Toradol and Zofran with marked overall improvement and remains nontoxic without signs of sepsis. Will prescribe flomax, narcotic analgesic, and antiemetic. Patient has a follow-up appointment with his urologist on [id number]. Will encourage to follow-up and provide precaution instructions. Patient data External records reviewed:: [facility] previous records (Per chart review, patient was seen here on01/17/25 for ureterolithiasis.) Clinical information provided by:: patient Social determinants that could affect healthcare access:: none Patient has the following chronic illnesses:: kidney stones How is presenting disease/condition affected by chronic disease/condition?: caused by Evaluation data The following diagnostics were reviewed and interpreted by me:: lab results and radiology exam(s) Lab and/or radiology exams considered but not ordered:: none Interpretation Summary: [facility] Report Signed Patient: THIAGO CERVANTES. Record#: [id number] Birthdate: 1970 Age/Sex: 54 / M Location: [facility] Attending Dr: Ordering Physician: Phong Jack PA-C Date of Service: 03/02/25 Procedure(s): CT abdomen pelvis wo [facility] Accession Number(s): [id number] cc: Dario Byrne; Servando Marin MD; Phong Jack PA-C~ Examination: CT abdomen and pelvis without contrast. Coronal 3-D reconstructions. Sagittal 2-D reconstructions. Date and time of exam: March 02, 2025, 2144 hours, comparison January 17, 2025 INDICATIONS: Onset right flank pain today, history renal calculi and right ureteral stent CTDI: vol (mGy): 13.6 DLP: (mGycm): 905 Technique: Axial images of the abdomen have been obtained, 3 mm slice thickness Intravenous contrast material has not been administered. Low dose protocols were performed. One or more of the following dose reduction techniques were used; automated exposure control, adjustment of the mA and/or KV according to patient size, use of iterative reconstruction technique. Findings: No visualized liver or splenic lesion Contracted gallbladder No pancreatic or adrenal mass Moderate right hydronephrosis, multiple right renal calculi, including a staghorn calculus lower pole right renal calyx 13 mm 5 mm distal right ureteral calculus No bowel obstruction No pericecal inflammatory change Normal seminal vesicles Mild prostatomegaly Contracted urinary bladder IMPRESSION:: Moderate right hydronephrosis, 5 mm distal right ureteral calculus Dictated By: Servando Marin MD Signed By: <Electronically signed by Servando Marin MD in OV> 03/02/251 Medications / Prescriptions Medications or Prescriptions considered but not ordered:: none Medication administrations:: Medication Administration History Discontinued Medications Amlodipine Besylate (Amlodipine Besylate 5 Mg Tablet) 5 mg PO X1 ONE Stop: 03/02/25 22:54 Ketorolac Tromethamine (Ketorolac Inj 60 Mg/2 Ml Vial) 60 mg IM X1 ONE Stop: 03/02/25 21:27 Last Admin: 03/02/25 22:00 Dose: 60 mg Documented By: SR Ondansetron HCl (Ondansetron Odt 4 Mg Tabrap) 4 mg PO X1 ONE; Protocol Stop: 03/02/25 21:27 Last Admin: 03/02/25 21:59 Dose: 4 mg Documented By: SR see above Consultations Consultation(s) initiated? (list below): No Diagnosis Urogenital Male Differential Diagnosis: urinary tract infection and other (kidney stone, cystitis, pyelonephritis) Most likely diagnosis given after review of the tests above:: see clinical impression below Admission Indicated Admission indicated?: not indicated Admission Request Was there a request for admission?: No Disposition Plan Disposition Plan: Discharge Discharge Attestation Discharge Attestation: The patient and all family members were given an opportunity to ask questions and understood the discharge instructions. Discharge instructions specifically effects, indications for sooner follow up or return to the emergency department, and the expected course of current diagnosis. Patient condition: Stable Discharge Plan Plan Patient Disposition: HOME (Self Care) Discharge Disposition comment: Stable Prescriptions/Referrals Prescriptions/Med Rec: New amlodipine 5 mg tablet 5 mg PO QDAY Qty: 30 1RF promethazine 12.5 mg tablet 12.5 mg PO TID PRN (Reason: nausea and vomiting) Qty: 14 0RF hydrocodone-acetaminophen 5-325 mg tablet 1 tab PO Q8H MDD 3 TAB PRN (Reason: pain) Qty: 24 0RF tamsulosin 0.4 mg capsule 0.4 mg PO QDAY 7 Days Qty: 7 0RF No Action hydrocodone-acetaminophen 5-325 mg tablet 1 tab PO Q6H PRN (Reason: pain) Patient Comments: 1 TAB ORALLY EVERY 6 HOURS NEEDED FOR PAIN, MAX DAILY DOSE: 4 tamsulosin [Flomax] 0.4 mg capsule 0.4 mg PO DAILY hydrocodone-acetaminophen 5-325 mg tablet 1 tab PO Q6H MDD 4 PRN (Reason: pain) Qty: 30 0RF ciprofloxacin HCl [Cipro] 500 mg tablet 500 mg PO BID Qty: 14 0RF Referrals: Dario Byrne FNP [Primary Care Provider] - In 1 week Problem List Clinical Impression: Ureterolithiasis, Accelerated hypertension Impression comment: Ureterolithiasis/ Acc hypertension. Patient/Caregiver Discharge Instructions Discharge Activity: activity as tolerated Diet Instructions: Low-salt diet Education Materials: Controlling High Blood Pressure, Blood Pressure Check Steps Additional Instructions: Low-salt diet. Medications as directed. Follow-up with urologist as anticipated on Wednesday morning. Return for fevers vomiting escalating abdominal pain or worsening illness. Print Language: Ukrainian Stand Alone Forms: Jie Award Info., Patient Portal Info Letter
[2025-03-02 23:06] VITALS: BP 172/104; PULSE 97
[2025-03-02 23:09] VITALS: BP 172/104; PULSE 78; RESP 19; O2SAT 97
[2025-03-02] MEDS: HYDROcodone/APAP 5/325 TABLET 1 TAB PO (23:12)
== END 2025-03-02 23:12 | disposition home or self-care (01) ==
PROVIDERS: Physician Assistant; Emergency Provider Emergency Medicine; PCP Nurse Practitioner Family
DX: N13.2 Hydronephrosis with renal and ureteral calculous obstruction (principal); I10 Essential (primary) hypertension
CPT/HCPCS: 36415; 74176; 80053; 81001; 85025; 96372; 99283; J1885; Q0162; A9270